=== PATIENT | female | born 1950 | race Caucasian/White ===

== ENCOUNTER → 2016-06-27 | Outpatient (CLI) | payer BC ==
[~2016-06-27] MED LIST: ADVIN10/60 INH; BNC/20125 PO; CALCTAB5 PO; CETITAB27 PO; CHOL100010 PO; CMD5 PO; MOME50SP5 NAE; MULT-506 PO; OMEG10007 PO; PERFLUTREN LIPID MICROSPHERE (DEFINITY) IV ONE; POTA10CA28 PO; SYN125 PO
--- NOTE | 2016-06-27 11:52 | EXERCISE STRESS ECHO ---
*NOTICE TO RECEIVING [employer] This information is strictly Confidential and protected under [place] law. [place] law prohibits you from making any further disclosure of this information unless further disclosure is expressly permitted by the written consent of the person to whom it pertains or is authorized by law. A general authorization for the release of medical or other information is not sufficient for this purpose. Hospital accepts no responsibility if the information is made available to any other person, INCLUDING THE PATIENT. Interpretation Summary * Name: ZHANE RAGLAND Study Date: 06/27/2016 08:40 AM BP: 111/62 mmHg * Patient Location: [facility] HR: 63 * : 1950 (M/d/yyyy) Gender: Female Height: 63 in * Age: 66 yrs Ethnicity: [place] Weight: 158 lb * Ordering Physician: Corey Ritchie * Referring Physician: Corey Ritchie * Performed By: Yamila Forrest RDCS * * Reason For Study: EXERTIONAL DYSPNEA * BSA: 1.7 m2 * History: EXERTIONAL CHEST PAIN * -- Conclusions -- * Left ventricular systolic function is normal. * Grade I diastolic dysfunction, (abnormal relaxation pattern). * Borderline stress test based on workload acheived (6 METS) without symptoms or evidence of inducible ischemia on echocardiography. * Hypertensive response to exercise. Procedure Details * A contrast injection of Definity was performed to improve assessment of LV function. * Contrast was injected into an intravenous site in the right arm. * One vial of Definity ultrasound contrast was diluted in normal saline to a total volume of 10 ml. A total of '4' ml of solution was administered during imaging. * Lot # [id number] of Definity utilized for procedure. * Expiration date JUL 18. * The attending nurse who injected the contrast agent was LEA SERRANO RN. Left Ventricle * The left ventricle is normal in size. * There is normal left ventricular wall thickness. * Ejection Fraction = 55-60%. * Left ventricular systolic function is normal. * Grade I diastolic dysfunction, (abnormal relaxation pattern). * The left ventricular wall motion is normal. Right Ventricle * The right ventricle is normal in size and function. Atria * The left atrial size is normal. * Right atrial size is normal. Mitral Valve * The mitral valve anatomy is normal. * Significant mitral regurgitation is absent. Tricuspid Valve * The tricuspid valve is not well visualized, but is grossly normal. * There is trace tricuspid regurgitation. Aortic Valve * The aortic valve is not well visualized. * No hemodynamically significant valvular aortic stenosis. * There is no significant aortic regurgitation. Great Vessels * The aortic root and proximal ascending aorta are normal sized. Pericardium * There is no pericardial effusion. Stress Parameters * Rest heart rate was '63' BPM. * Rest blood pressure was '111/62' * Maximum heart rate achieved was 130 bpm. * Maximum heart rate was 85 % of maximum age-predicted heart rate. * Maximum blood pressure was '199/69' * Total exercise time was '4:10' * Maximum exercise MET level achieved was '6.00' METS * Maximum treadmill speed was '2.50' miles per hour. * Maximum treadmill elevation was '12.00'% grade. * Exercise was terminated due to 'ACHIEVING TARGET HR' Left Ventricular Findings with Stress * Baseline EKG was normal with development of 1mm flat/upsloping ST depression at peak exertion. Normal baseline echocardiogram without inducible wall motion abnormalities. No chest pain reported Hypertensive BP response Draper treadmill score: -1 (moderate risk) MMode 2D Measurements and Calculations IVSd 1.2 cm IVSs 1.5 cm LVIDd 3.3 cm LVIDs 2.1 cm LVPWd 0.94 cm LVPWs 1.4 cm IVS/LVPW 1.3 FS 36.0 % EDV(Teich) 43.4 ml ESV(Teich) 14.3 ml EF(Teich) 67.0 % EDV(cubed) 35.2 ml ESV(cubed) 9.2 ml EF(cubed) 73.8 % % IVS thick 24.5 % % LVPW thick 48.8 % LV mass(C)d 106.4 grams LV mass(C)dI 60.8 grams/m\S\2 LV mass(C)s 99.1 grams LV mass(C)sI 56.7 grams/m\S\2 SV(Teich) 29.1 ml SI(Teich) 16.6 ml/m\S\2 SV(cubed) 26.0 ml SI(cubed) 14.9 ml/m\S\2 Ao root diam 3.2 cm Ao root area 7.9 cm\S\2 LA dimension 3.0 cm LA/Ao 0.93 LVAd ap4 27.0 cm\S\2 LVLd ap4 8.3 cm EDV(MOD-sp4) 76.3 ml EDV(sp4-el) 74.6 ml LVAs ap4 15.1 cm\S\2 LVLs ap4 6.6 cm ESV(MOD-sp4) 30.5 ml ESV(sp4-el) 29.5 ml EF(MOD-sp4) 60.0 % EF(sp4-el) 60.5 % LVAd ap2 24.5 cm\S\2 LVLd ap2 8.0 cm EDV(MOD-sp2) 61.8 ml EDV(sp2-el) 63.4 ml LVAs ap2 14.8 cm\S\2 LVLs ap2 6.6 cm ESV(MOD-sp2) 29.4 ml ESV(sp2-el) 28.0 ml EF(MOD-sp2) 52.4 % EF(sp2-el) 55.9 % LVLd %diff -3.45 % EDV(MOD-bp) 68.3 ml LVLs %diff 1.1 % ESV(MOD-bp) 30.1 ml EF(MOD-bp) 55.9 % SV(MOD-sp4) 45.7 ml SI(MOD-sp4) 26.1 ml/m\S\2 SV(MOD-sp2) 32.3 ml SI(MOD-sp2) 18.5 ml/m\S\2 SV(MOD-bp) 38.2 ml SI(MOD-bp) 21.8 ml/m\S\2 SV(sp4-el) 45.1 ml SI(sp4-el) 25.8 ml/m\S\2 SV(sp2-el) 35.4 ml SI(sp2-el) 20.2 ml/m\S\2 Doppler Measurements and Calculations MV E max ko 99.9 cm/sec MV A max ko 84.9 cm/sec MV E/A 1.2 MV dec time 0.27 sec Ao V2 max 133.9 cm/sec Ao max PG 7.2 mmHg Ao max PG (full) 2.6 mmHg LV V1 max PG 4.6 mmHg LV V1 max 106.7 cm/sec
== END | disposition home or self-care (01) ==
LOC: C.CPL 08:30
PROVIDERS: ATTEND Family Medicine
DX: R07.9 Chest pain, unspecified (principal)

== ENCOUNTER → 2016-12-15 | Outpatient (CLI) | payer BC ==
[~2016-12-15] MED LIST changes: +ASPI325T39 PO; +COEN100C7 PO; +HORS300C2 PO; +LEVO125T72 PO; +METO-217 PO; +OLME1TAB11 PO; -PERFLUTREN LIPID MICROSPHERE (DEFINITY) IV ONE
--- NOTE | 2016-12-15 10:44 | DIAGNOSTIC IMAGING REPORT ---
ABDOMINAL ULTRASOUND COMPLETE HISTORY: Generalized abdominal Pain, ventral HERNIA. COMPARISON: None. FINDINGS: Pancreas: The pancreas demonstrates a normal echotexture. Liver: The liver is echogenic consistent with fatty change. Gallbladder: The gallbladder is surgically absent. CBD: 7 mm. Kidneys: No hydronephrosis. The left kidney was partially obscured by overlying bowel gas. Spleen: Normal in size. Partially obscured by overlying bowel gas. Aorta: Normal in caliber. Of note, the aortic bifurcation was obscured by overlying bowel gas. IVC: Not well visualized due to overlying bowel gas. Partially reducible fat-containing umbilical hernia. IMPRESSION: 1. Fat-containing partially reducible umbilical hernia. 2. Cholecystectomy. 3. Hepatic steatosis. Electronically signed by: Deon Mejia M.D. 12/15/2016 10:43 AM Dictated Date/Time: 12/15/2016 10:39 AM
== END | disposition home or self-care (01) ==
LOC: C.ULTRBC 08:26
PROVIDERS: ATTEND Family Medicine
DX: K42.9 Umbilical hernia without obstruction or gangrene (principal); K76.0 Fatty (change of) liver, not elsewhere classified; Z90.49 Acquired absence of other specified parts of digestive tract

== ENCOUNTER → 2016-12-25 | Outpatient (CLI) | payer BC | END | disposition home or self-care (01) | LOC: C.PAPS 09:47 | PROVIDERS: ATTEND Obstetrics & Gynecology | DX: Z01.419 Encounter for gynecological examination (general) (routine) without abnormal findings (principal) ==

== ENCOUNTER → 2017-01-24 | Day surgery (SDC) | payer BC ==
[~2017-01-24] VITALS: Ht 160 cm; Wt 79.1 kg
[~2017-01-24] MED LIST changes: +ATROPINE SULFATE 0.1 MG/ML 5ML SYR IV PRN; -BNC/20125 PO; -CALCTAB5 PO; -CETITAB27 PO; -CHOL100010 PO; -CMD5 PO; +EpHEDrine SULFATE INJ 50 MG/ML AMP IV PRN; +LIDOCAINE HCL 2% 2 ML VIAL (20MG/ML) ONE; +MIDAZOLAM HCL 1 MG/ML 2ML VIAL ONE; -MOME50SP5 NAE; -POTA10CA28 PO; +PROPOFOL IV EMULSION 10 MG/ML 20 ML VIAL IV ONE; +SODIUM CHLORIDE 0.9% 500ML 500 ML IV ONE; -SYN125 PO
[2017-01-24 13:29] VITALS: Ht 160 cm; Wt 79.1 kg
--- NOTE | 2017-01-24 14:04 | Endo History and Physical ---
History & Physical Date of Service: Jan 24, 2017. Chief Complaint: RECTAL BLEED Referring Physician: DR. FRANCO History of Present Illness 66 yo CF who presents for colonoscopy secondary to Rectal bleeding. Past Surgical History Hx Cardiac Surgery: No Hx Internal Defibrillator: No Hx Pacemaker: No Hx Abdominal Surgery: Yes (2 C-SECTIONS, HYSTERECTOMY, DARIAN) Hx of Implantable Prosthesis: No Hx Post-Op Nausea and Vomiting: No Hx Cancer Surgery: No Hx Thoracic Surgery: No Hx Orthopedic: No Hx Urinary Tract Surgery: No Family History IBD Social History Smoking Status: Never Smoker Hx Substance Use: No Hx Alcohol Use: Yes (OCCASIONALLY) Allergies Coded Allergies: Azithromycin (Verified Allergy, Severe, ANAPHILAXIS, 01/24/17) Moxifloxacin (Verified Allergy, Severe, ANAPHILAXIS, 01/24/17) Sulfa Drugs (Verified Allergy, Intermediate, HIVES, SWELLING, 01/24/17) Doxycycline (Verified Allergy, Unknown, HIVES, 01/24/17) Penicillins (Verified Allergy, Unknown, HIVES, SWELLING, 01/24/17) Current Medications Reported Home Medications Medications Dose Route/Sig Max Daily Dose Days Date Category Synthroid (Levothyroxine Sodium) 125 Mcg Tab 125 Mcg PO QAM 01/10/17 Reported Multivitamin (Multivitamins) Tab 1 Tab PO DAILY 01/10/17 Reported Toprol Xl (Metoprolol Succinate) 50 Mg Tabcr 50 Mg PO QPM 01/10/17 Reported [place]-3 (Fish Oil) 1 Ea Cap 1 Cap PO DAILY 01/10/17 Reported Coq10 (Coenzyme Q10 (Ubidecarenone)) 100 Mg Cap 1 Cap PO DAILY 01/10/17 Reported Benicar (Olmesartan Medoxomil) 20 Mg Tab 20 Mg PO QAM 01/10/17 Reported Aspirin Ec (Aspirin) 325 Mg Tab 325 Mg PO HS 01/10/17 Reported Advair Diskus 100/50 60 Dose (Fluticasone Prop/Salmeterol) 1 Ea Aerp 1 Puff INH BID PRN 01/10/17 Reported Venastat ([place] (Aesculus Hippo) 300 Mg Cap 1 Cap PO QAM 01/10/17 Reported Vital Signs Weight (Kilograms): 79.09 Height (Feet): 5 Height (Inches): 3 Date Time Temp Pulse Resp B/P (MAP) Pulse Ox O2 Delivery O2 Flow Rate FiO2 01/24/17 13:55 37.0 67 20 167/69 (101) 96 Room Air Physical Exam General Appearance: WD/WN, no apparent distress Respiratory/Chest: Auscultation: breath sounds normal Cardiovascular: Heart Auscultation: RRR Abdomen: Bowel Sounds: normal Inspection & Palpation: soft, non-distended, no tenderness, guarding & rebound Assessment and Plan Assessment: 66 yo CF who presents for colonoscopy secondary to Rectal bleeding. Plan: Proceed with colonoscopy.
--- NOTE | 2017-01-24 14:42 | Anesthesiology Progress Note ---
Anesthesia Post Op Note Date & Time Jan 24, 2017 at 14:42 Vital Signs Pain Intensity: 0 Vital Signs Past 12 Hours Date Time Temp Pulse Resp B/P (MAP) Pulse Ox O2 Delivery O2 Flow Rate FiO2 01/24/17 13:55 37.0 67 20 167/69 (101) 96 Room Air Notes Mental Status: alert / awake / arousable, participated in evaluation Pt Amnestic to Procedure: Yes Nausea / Vomiting: adequately controlled Pain: adequately controlled Airway Patency, RR, SpO2: stable & adequate BP & HR: stable & adequate Hydration State: stable & adequate Anesthetic Complications: no major complications apparent
[2017-01-24 15:08] VITALS: BP 163/87; PULSE 71; O2SAT 95
--- NOTE | 2017-01-24 15:30 | Discharge Instructions ---
Endoscopy Patient Instructions Date / Procedure(s) Performed Jan 24, 2017. Colonoscopy Allergy Information Coded Allergies: Azithromycin (Verified Allergy, Severe, ANAPHILAXIS, 01/24/17) Moxifloxacin (Verified Allergy, Severe, ANAPHILAXIS, 01/24/17) Doxycycline (Verified Allergy, Unknown, HIVES, 01/24/17) Penicillins (Verified Allergy, Unknown, HIVES, SWELLING, 01/24/17) Sulfa Antibiotics (Verified Allergy, Unknown, HIVES, SWELLING, 01/24/17) Discharge Date / Findings Jan 24, 2017. Colon polyps Diverticulosis Internal hemorrhoids Medication Instructions OK to resume all medications today as prescribed Reported Home Medications Medications Dose Route/Sig Max Daily Dose Days Date Category Synthroid (Levothyroxine Sodium) 125 Mcg Tab 125 Mcg PO QAM 01/10/17 Reported Multivitamin (Multivitamins) Tab 1 Tab PO DAILY 01/10/17 Reported Toprol Xl (Metoprolol Succinate) 50 Mg Tabcr 50 Mg PO QPM 01/10/17 Reported [place]-3 (Fish Oil) 1 Ea Cap 1 Cap PO DAILY 01/10/17 Reported Coq10 (Coenzyme Q10 (Ubidecarenone)) 100 Mg Cap 1 Cap PO DAILY 01/10/17 Reported Benicar (Olmesartan Medoxomil) 20 Mg Tab 20 Mg PO QAM 01/10/17 Reported Aspirin Ec (Aspirin) 325 Mg Tab 325 Mg PO HS 01/10/17 Reported Advair Diskus 100/50 60 Dose (Fluticasone Prop/Salmeterol) 1 Ea Aerp 1 Puff INH BID PRN 01/10/17 Reported Venastat ([place] (Aesculus Hippo) 300 Mg Cap 1 Cap PO QAM 01/10/17 Reported Provider Instructions Activity Restrictions - No exercising or heavy lifting for 24 hours. - Do not drink alcohol the day of the procedure. - Do not drive a car or operate machinery until the day after the procedure. - Do not make any important decisions or sign important papers in 24 hours after the procedure. Following Day: - Return to full activity which may include returning to work/school. Diet Start your diet with liquids and light foods (jello, soup, juice, toast). Then eat your usual diet if not nauseated. Treatment For Common After Affects For mild abdominal pain, bloating, or excessive gas: - Rest - Eat lightly - Lie on right side Follow-Up Information Follow-up with DR. FRANCO as scheduled Anesthesia Information What You Should Know You have had a procedure that required some medicine to reduce anxiety and discomfort. This treatment is called moderate sedation. After receiving the treatment, you may be sleepy, but you will be able to breathe on your own. The effects of the treatment may last for several hours. Follow these instructions along with Activity/Diet recommendations noted above: * Do NOT do anything where dizziness or clumsiness would be dangerous. * Rest quietly at home today, then you can be up and about tomorrow. * Have a responsible person stay with you the rest of today. * You may have had an I.V. today. If so, you may take the dressing off later today. Recommendations Call your doctor if: * Trouble breathing * Continuous vomiting for more than 24 hours * Temperature above 101 degrees * Severe abdominal pain or bloating * Pain not relieved by pain medicine ordered * There is increased drainage or redness from any incision * A large amount of rectal bleeding greater than 2-3 tablespoons. (If you had a polyp/s removed or have hemorrhoids, a small amount of blood - from the rectum is to be expected.) * You have any unanswered questions or concerns. IN THE EVENT OF A SERIOUS EMERGENCY, GO TO THE NEAREST EMERGENCY ROOM Your discharge instructions were prepared by provider Gus Knox. Patient Instructions Signature Page Cat Persaud Patient (or Guardian) Signature/Date: I have read and understand the instructions given to me by my caregivers. Caregiver/RN/Doctor Signature/Date: The above-named patient and/or guardian has received patient instructions on this date. + Original Patient Signature Page (only) stays with chart. Please make copy for patient.
--- NOTE | 2017-01-24 20:25 | GI REPORT ---
Procedure Date: 01/24/2017 2:08 PM Procedure: Colonoscopy Indications: Screening for colorectal malignant neoplasm Medicines: Monitored Anesthesia Care Complications: No immediate complications. Estimated Blood Loss: Estimated blood loss: none. Procedure: Pre-Anesthesia Assessment: - Prior to the procedure, a History and Physical was performed, and patient medications and allergies were reviewed. The patient's tolerance of previous anesthesia was also reviewed. The risks and benefits of the procedure and the sedation options and risks were discussed with the patient. All questions were answered, and informed consent was obtained. Prior Anticoagulants: The patient has taken aspirin, last dose was 2 days prior to procedure. ASA Grade Assessment: II - A patient with mild systemic disease. After reviewing the risks and benefits, the patient was deemed in satisfactory condition to undergo the procedure. After I obtained informed consent, the scope was passed under direct vision. Throughout the procedure, the patient's blood pressure, pulse, and oxygen saturations were monitored continuously. The Scope was introduced through the anus and advanced to the terminal ileum. The colonoscopy was performed without difficulty. The patient tolerated the procedure well. The quality of the bowel preparation was good. The terminal ileum, ileocecal valve, appendiceal orifice, and rectum were photographed. Findings: A 5 mm polyp was found in the ascending colon. The polyp was sessile. The polyp was removed with a hot snare. Resection and retrieval were complete. A 3 mm polyp was found in the transverse colon. The polyp was sessile. The polyp was removed with a cold snare. Resection and retrieval were complete. Multiple small-mouthed diverticula were found in the sigmoid colon. Non-bleeding internal hemorrhoids were found during retroflexion. The hemorrhoids were small. Impression: - One 5 mm polyp in the ascending colon, removed with a hot snare. Resected and retrieved. - One 3 mm polyp in the transverse colon, removed with a cold snare. Resected and retrieved. - Diverticulosis in the sigmoid colon. - Non-bleeding internal hemorrhoids. Recommendation: - Resume previous diet. - Continue present medications. - Repeat colonoscopy for surveillance based on pathology results. - Return to primary care physician as previously scheduled. Gus Knox DO 01/24/2017 2:35:10 PM This report has been signed electronically. Note Initiated On: 01/24/2017 2:08 PM I attest to the content of the Intraoperative Record and orders documented therein, exceptions below
== END | disposition home or self-care (01) ==
LOC: C.GI 13:14
PROVIDERS: ATTEND Internal Medicine
DX: K62.5 Hemorrhage of anus and rectum (principal); D12.2 Benign neoplasm of ascending colon; D12.3 Benign neoplasm of transverse colon; K57.30 Diverticulosis of large intestine without perforation or abscess without bleeding; K64.8 Other hemorrhoids; I10 Essential (primary) hypertension; E03.9 Hypothyroidism, unspecified; Z68.30 Body mass index [BMI] 30.0-30.9, adult; E66.9 Obesity, unspecified; Z86.711 Personal history of pulmonary embolism; Z88.1 Allergy status to other antibiotic agents; Z88.0 Allergy status to penicillin; Z88.2 Allergy status to sulfonamides; Z90.49 Acquired absence of other specified parts of digestive tract; Z90.710 Acquired absence of both cervix and uterus

== ENCOUNTER → 2017-02-19 | Outpatient (CLI) | payer BC ==
[~2017-02-19] MED LIST changes: -ATROPINE SULFATE 0.1 MG/ML 5ML SYR IV PRN; -EpHEDrine SULFATE INJ 50 MG/ML AMP IV PRN; -LIDOCAINE HCL 2% 2 ML VIAL (20MG/ML) ONE; -MIDAZOLAM HCL 1 MG/ML 2ML VIAL ONE; -PROPOFOL IV EMULSION 10 MG/ML 20 ML VIAL IV ONE; -SODIUM CHLORIDE 0.9% 500ML 500 ML IV ONE
[2017-02-19 09:37] LABS: BASO % 0.9 %; BASO ABS # 0.07 K/uL (0-0.2); COMPLETE YES; EOS % 7.8 %; HEMATOCRIT 42.2 % (37-47); IG% 0.1 %; LYMPH % 31.8 %; LYMPH ABS # 2.46 K/uL (1.2-3.4); MEAN CELL VOLUME 85.8 fL (80-100); MEAN CORPUSCULAR HEMOGLOBIN 28.9 pg (25-34); MEAN CORPUSCULAR HGB CONC 33.6 g/dl (32-36); MEAN PLATELET VOLUME 9.1 fL (7.4-10.4); MONO % 8.1 %; NEUT % 51.3 %; PLATELET COUNT 244 K/uL (130-400); RED BLOOD COUNT 4.92 M/uL (4.2-5.4); WHITE BLOOD COUNT 7.74 K/uL (4.8-10.8)
[2017-02-19 09:57] LABS: ESTIMATED AVERAGE GLUCOSE 128 mg/dl; HA1C FLAG Normal (Normal)
[2017-02-19 10:10] LABS: ALT/SGPT 23 U/L (12-78); BLOOD UREA NITROGEN 17 mg/dl (7-18); BUN/CREATININE RATIO 23.6 (10-20); CARBON DIOXIDE 26 mmol/L (21-32); CHLORIDE 106 mmol/L (98-107); CHOLESTEROL 203 mg/dl (0-200); CREATININE 0.73 mg/dl (0.60-1.20); GLUCOSE 88 mg/dl (70-99); POTASSIUM 3.8 mmol/L (3.5-5.1); SODIUM 141 mmol/L (136-145); TRIGLYCERIDES 162 mg/dl (0-150); VERY LOW DENSITY LIPOPROT CALC 32 mg/dl
[2017-02-19 10:21] LABS: ALKALINE PHOSPHATASE 87 U/L (45-117); AST/SGOT 17 U/L (15-37); HDL CHOLESTEROL 51 mg/dl; LDL CHOLESTEROL CALCULATED 120 mg/dl
== END | disposition home or self-care (01) ==
LOC: C.LAB1850 09:02
PROVIDERS: ATTEND Family Medicine
DX: E78.5 Hyperlipidemia, unspecified (principal)

== ENCOUNTER → 2017-02-20 | Outpatient (CLI) | payer BC ==
[~2017-02-20] MED LIST changes: +GADOXETATE DISODIUM (NON-WT BASED PROCEDURE) IV PRN
--- NOTE | 2017-02-20 08:18 | DIAGNOSTIC IMAGING REPORT ---
MRI OF THE ABDOMEN COMBO CLINICAL HISTORY: Generalized abdominal pain. Reported family history of biliary cancer. COMPARISON STUDY: Abdominal CT dated 11/14/2009. Abdominal ultrasound dated 12/15/2016. TECHNIQUE: MRI of the abdomen is performed transverse T1 and T2-weighted sequences in the axial and coronal planes. Contrast enhanced sequences were acquired following the IV administration of 10 cc view of Eovist. Subtraction and diffusion imaging was utilized. MRCP images were acquired. 3-D reformats are created and assessed. FINDINGS: Lower chest: No pleural effusion is identified. The heart is normal in size. Liver: The liver is enlarged, measuring 20.5 cm in length. There is diffuse drop in signal on the opposed phase imaging consistent with hepatic steatosis. Fatty sparing is seen adjacent to gallbladder fossa. The surface contour is normal. Mild central intrahepatic biliary ductal dilatation is seen. The hepatic veins and portal veins are patent. No hepatic mass lesion is identified. Gallbladder: The gallbladder is surgically absent. The common bile duct measures up to 1.0 cm in caliber. No filling defects are seen to indicate choledocholithiasis. The pancreatic duct is normal. Spleen: Normal in size and signal intensity. Pancreas: A 6 mm ovoid T2 hyperintense structure adjacent the pancreatic duct seen on axial image #15 and coronal MRCP image #52 likely represents a tiny IPMN. The pancreas is otherwise normal in appearance. Adrenal glands: Unremarkable. Kidneys: The kidneys are normal in size and without hydronephrosis. The kidneys enhance and excrete symmetrically. Abdominal aorta: Normal in course and caliber. Bowel: Visualized portions of the small bowel and colon show no evidence of obstruction. Peritoneum: There is no abdominal ascites. Lymphadenopathy: None. Skeletal structures: Visualized skeletal structures times are normal marrow signal intensity. IMPRESSION: 1. Hepatomegaly and hepatic steatosis. 2. Status post cholecystectomy. 3. No enhancing mass lesion is identified. 4. Suspect a 6 mm pancreatic IPMN. 5. Mild intra and extrahepatic biliary ductal dilatation is likely related to previous cholecystectomy. There is no evidence of choledocholithiasis. Electronically signed by: Adrian Abraham M.D. 02/20/2017 8:16 AM Dictated Date/Time: 02/20/2017 7:59 AM
== END | disposition home or self-care (01) ==
LOC: C.MRI 06:33
PROVIDERS: ATTEND Family Medicine
DX: R10.9 Unspecified abdominal pain (principal); Z80.0 Family history of malignant neoplasm of digestive organs; R16.0 Hepatomegaly, not elsewhere classified; K76.0 Fatty (change of) liver, not elsewhere classified

== ENCOUNTER → 2017-03-23 | Outpatient (CLI) | payer BC ==
[~2017-03-23] MED LIST changes: -GADOXETATE DISODIUM (NON-WT BASED PROCEDURE) IV PRN
--- NOTE | 2017-03-29 12:17 | CODING QUERY NO DIAGNOSIS ---
TREATMENT RENDERED WITHOUT A DIAGNOSIS To promote full compliance with coding requirements relating to patient care, physician participation is requested in all cases of asbestos abatement technician uncertainty. Please assist us with providing a diagnosis/symptom for the test(s) below: A diagnosis/symptom was not documented on your Order. A valid diagnosis/symptom is required to bill all insurances. Please remember that we are unable to code a diagnosis of rule out, probable, possible, questionable, or suspected. Tests that require a diagnosis: * URINE CULTURE CLEAN CATCH DIAGNOSIS: Provider Signature: Date: Thank you Vianney [place] [employer] Once completed, please kindly fax back to [phone] For questions please call [phone]
== END | disposition home or self-care (01) ==
LOC: C.LABSPEC 16:33
PROVIDERS: ATTEND Family Medicine
DX: N39.0 Urinary tract infection, site not specified (principal)

== ENCOUNTER → 2017-04-19 | Outpatient (CLI) | payer BC | END | disposition home or self-care (01) | LOC: C.MAMM 09:18 | DX: Z12.31 Encounter for screening mammogram for malignant neoplasm of breast (principal) ==

== ENCOUNTER → 2017-04-23 | Outpatient (CLI) | payer BC | END | disposition home or self-care (01) | LOC: C.LAB 08:49 | PROVIDERS: ATTEND Nutritionist | DX: R53.83 Other fatigue (principal); E63.9 Nutritional deficiency, unspecified ==

== ENCOUNTER 2017-05-17 05:37 | Day surgery (SDC) | payer BC ==
[2017-05-04 08:37] VITALS: BMI 34.0
--- NOTE | 2017-05-04 09:10 | PAT Medication Instructions ---
Service Date May 04, 2017. Current Home Medication List Aspirin (Aspirin Ec), 325 MG PO HS Coenzyme Q10 (Ubidecarenone) (Coq10), 1 CAP PO DAILY Fish Oil ([place]-3), 1 CAP PO DAILY Fluticasone Prop/Salmeterol (Advair Diskus 100/50 60 Dose), 1 PUFF INH BID PRN for Shortness of Breath [place] (Aesculus Hippo (Venastat), 2 CAP PO DAILY Levothyroxine Sodium (Synthroid), 125 MCG PO QAM Metoprolol Succinate (Toprol Xl), 50 MG PO QPM Multivitamin (Multivitamin), 1 TAB PO DAILY Olmesartan Medoxomil (Benicar), 20 MG PO QAM Omeprazole (Prilosec), 20 MG PO QPM [Aloe Vera], 1 TAB PO QPM Medication Instructions For Your Scheduled Surgery - Hold the following medications starting 05/04/17: Coenzyme Q10 (Ubidecarenone) (Coq10), 1 CAP PO DAILY Fish Oil ([place]-3), 1 CAP PO DAILY [place] (Aesculus Hipp[place] (Venastat), 2 CAP PO DAILY - Check with surgeon for instructions: Aspirin (Aspirin Ec), 325 MG PO HS - Hold the following medications the morning of surgery: Multivitamin (Multivitamin), 1 TAB PO DAILY Olmesartan Medoxomil (Benicar), 20 MG PO QAM - Take the following medications the morning of surgery with a sip of water: Fluticasone Prop/Salmeterol (Advair Diskus 100/50 60 Dose), 1 PUFF INH BID PRN for Shortness of Breath (if needed) Levothyroxine Sodium (Synthroid), 125 MCG PO QAM - Take the following medications as scheduled the night before surgery: Fluticasone Prop/Salmeterol (Advair Diskus 100/50 60 Dose), 1 PUFF INH BID PRN for Shortness of Breath (if needed) [Aloe Vera], 1 TAB PO QPM Omeprazole (Prilosec), 20 MG PO QPM Metoprolol Succinate (Toprol Xl), 50 MG PO QPM If you have any questions please call us at [phone] or [phone] or [phone]
--- NOTE | 2017-05-04 09:57 | DIAGNOSTIC IMAGING REPORT ---
CHEST 2 VIEWS ROUTINE CLINICAL HISTORY: Preoperative chest COMPARISON STUDY: 03/23/2010 FINDINGS: The cardiac and mediastinal contours remain stable. There is no failure. There is no focal pulmonary consolidation. There are no pleural effusions. There is minor left basilar atelectasis/scarring[ IMPRESSION: No active disease in the chest. Electronically signed by: Kang Cadet M.D. 05/04/2017 9:56 AM Dictated Date/Time: 05/04/2017 9:56 AM
[2017-05-04 10:14] LABS: BASO ABS # 0.08 K/uL (0-0.2); EOS % 7.1 %; EOS ABS # 0.58 K/uL (0-0.5); HEMOGLOBIN 13.7 g/dL (12.0-16.0); IG# 0.02 K/uL (0.00-0.02); LYMPH % 34.4 %; LYMPH ABS # 2.83 K/uL (1.2-3.4); MEAN CELL VOLUME 87.1 fL (80-100); MEAN CORPUSCULAR HEMOGLOBIN 28.4 pg (25-34); MEAN CORPUSCULAR HGB CONC 32.6 g/dl (32-36); MEAN PLATELET VOLUME 9.2 fL (7.4-10.4); MONO % 8.5 %; NEUT % 48.8 %; NEUT ABS # 4.01 K/uL (1.4-6.5); PLATELET COUNT 256 K/uL (130-400); RED CELL DISTRIBUTION WIDTH SD 44.8 fL (36.4-46.3); WHITE BLOOD COUNT 8.22 K/uL (4.8-10.8)
[2017-05-04 11:41] LABS: CALCIUM 8.9 mg/dl (8.5-10.1); CREATININE 0.8 mg/dl (0.60-1.20); POTASSIUM 4.2 mmol/L (3.5-5.1)
[~2017-05-17] VITALS: Ht 160 cm; Wt 88.3 kg
[~2017-05-17 05:37] MED LIST changes: +ALOE VERA PO; +BNC/20 PO; -OLME1TAB11 PO; +PRLSR20 PO
[2017-05-17 05:47] VITALS: BP 152/65; PULSE 71; TEMP 36.8; O2SAT 9; Ht 160 cm; Wt 88.3 kg
[2017-05-17] MEDS ORDERED: CIPROFLOXACIN 400MG / 200ML D5W IV ONE (06:00)
[2017-05-17] MEDS ORDERED: LACTATED RINGER'S 1000ML 1,000 ML IV SCH ×2 (06:00→08:27)
--- NOTE | 2017-05-17 06:29 | History & Physical Bridge Note ---
H&P Re-Evaluation Bridge Note: I have examined the patient, reviewed the History & Physical and in the interval since the performance of the History & Physical I have noted the following changes of clinical significance: No changes noted at bedside multiple allergies can take Cipro, supraumbilical bulge marked
[2017-05-17] MEDS ORDERED: ONDANSETRON INJ 2 MG/ML 2 ML VIAL ONE (06:38)
[2017-05-17] MEDS ORDERED: MIDAZOLAM HCL 1 MG/ML 2ML VIAL ONE (06:38)
[2017-05-17] MEDS ORDERED: PROPOFOL IV EMULSION 10 MG/ML 20 ML VIAL IV ONE (06:38)
[2017-05-17] MEDS ORDERED: LIDOCAINE HCL 2% 2 ML VIAL (20MG/ML) ONE (06:38)
[2017-05-17] MEDS ORDERED: FENTANYL CITRATE INJ 50 MCG/1 ML 2 ML VIAL ONE ×3 (06:39→08:15)
[2017-05-17] MEDS ORDERED: BUPIVACAINE 0.5 % 5 MG/1 ML MPF 30ML VIAL ONE (06:43)
[2017-05-17] MEDS ORDERED: BACITRACIN 50000 UNIT VIAL ONE (06:43)
[2017-05-17] MEDS ORDERED: CIPROFLOXACIN 400MG / 200ML D5W ONE (06:47)
[2017-05-17] MEDS ORDERED: DEXAMETHASONE SOD INJ 4 MG/ML VIAL ONE (07:40)
[2017-05-17] MEDS ORDERED: SUCCINYLCHOLINE 100MG/5ML SYR IV ONE (07:41)
[2017-05-17] MEDS ORDERED: NEOSTIGMINE METHYLSULFATE 5 MG/5 ML SYR ONE (07:41)
[2017-05-17] MEDS ORDERED: CISATRACURIUM BESYLATE IV SOLN 2 MG/ML 10 ML VIAL ONE (07:41)
[2017-05-17] MEDS ORDERED: GLYCOPYRROLATE INJ 0.2 MG/ML VIAL ONE (07:41)
--- NOTE | 2017-05-17 08:06 | [facility] Post Operative Brief Note ---
Immediate Operative Summary Operative Date May 17, 2017. Pre-Operative Diagnosis Incarcerated incisional hernia Post-Operative Diagnosis Same Procedure(s) Performed Laparoscopic Incisional Incarcerated Hernia Repair with Mesh 12.[address] Saenz Aoc Director Combat Operations Officer Surgeon(s) Dilan Villegas PA-C Estimated Blood Loss 7.5ml Findings Consistent with Post-Op Diagnosis Specimens None Anesthesia Type General
[2017-05-17] MEDS ORDERED: OXYCODONE/ACETAMINOPHEN 5-325 TAB PO PRN (08:30)
[2017-05-17] MEDS ORDERED: PROMETHAZINE HCL INJ 12.5 MG in SODIUM CHLORIDE 0.9% 50ML 50 ML IV PRN (08:30)
[2017-05-17] MEDS ORDERED: ONDANSETRON INJ 2 MG/ML 2 ML VIAL IV PRN ×2 (08:30)
[2017-05-17] MEDS ORDERED: MoRPHine SULFATE 2 MG/ML CARP IV PRN (08:30)
[2017-05-17] MEDS ORDERED: HYDROmorphone INJ 1 MG/ML SYR IV PRN (08:30)
[2017-05-17] MEDS ORDERED: LABETALOL HCL IV 5 MG/ML 20ML IV PRN (08:30)
[2017-05-17] MEDS ORDERED: NALOXONE HCL 0.4 MG/1 ML VIAL/CARP IV PRN (08:30)
[2017-05-17] MEDS ORDERED: FLUMAZENIL 0.1 MG/1 ML 10 ML VIAL IV PRN (08:30)
[2017-05-17] MEDS ORDERED: OXYC-57 PO (08:30)
[2017-05-17] MEDS ORDERED: EpHEDrine SULFATE INJ 50 MG/ML AMP IV PRN (08:30)
[2017-05-17] MEDS ORDERED: ATROPINE SULFATE 0.1 MG/ML 5ML SYR IV PRN (08:30)
--- NOTE | 2017-05-17 08:33 | Discharge Instructions ---
Discharge Instructions Date of Service May 17, 2017. Visit Reason for Visit: Incisional Hernia Discharge Discharge Diagnosis / Problem: laparoscopic hernia repair Discharge Goals Goal(s): Decrease discomfort Activity Recommendations Activity Limitations: as noted below Lifting Limitations: no more than 10 pounds Shower/Bathe: tomorrow wear abdominal binder until bedtime today, can then use during the day for comfort Anesthesia . Post Anesthesia Instructions: If you have had General Anesthesia or IV Sedation: * Do not drive today. * Resume driving when surgeon permits. * Do not make important decisions or sign legal documents today. * Call surgeon for: 1. Temperature elevations greater than 101 degrees F. 2. Uncontrollable pain. 3. Excessive bleeding. 4. Persistent nausea and vomiting. 5. Medication intolerance (nausea, vomiting or rash). * For nausea and vomiting use only clear liquids such as: tea, soda, bouillon until nausea subsides, then gradually increase diet as tolerated. * If you have any concerns or questions, call your surgeon's office. If physician is unavailable and it is an emergency, call 911 or go to the nearest emergency room. . Instructions / Follow-Up Instructions / Follow-Up Dr. Saenz in 1 week, call [phone] if you do not already have an appt or have any questions Diet Recommendations Recommended Home Diet: no limitations Procedures Procedures Performed: Laparoscopic Incisional Incarcerated Hernia Repair with Mesh 12.5 cm surgimesh Pending Studies Studies pending at discharge: no Medical Emergencies . Who to Call and When: Medical Emergencies: If at any time you feel your situation is an emergency, please call 911 immediately. . Non-Emergent Contact Non-Emergency issues call your: Surgeon Call Non-Emergent contact if: you have a fever, temperature is above 101.5, your pain is not controlled, wound has increased redness, wound has increased pain, you have any medication questions . . "Provider Documentation" section prepared by Dilan Villegas. . [place] Drug Monitoring Program Search Results: no issues identified
--- NOTE | 2017-05-17 08:46 | OPERATIVE REPORT ---
DATE OF OPERATION: 05/17/2017 SURGEON: Dr. Saenz. BARGAIN TABLE CLERK: Dilan Kamara PA-C. PREOPERATIVE DIAGNOSIS: Incarcerated incisional hernia. POSTOPERATIVE DIAGNOSIS: Same. PROCEDURE: Laparoscopic repair of incarcerated incisional hernia with 12.5 cm Surgimesh. SUMMARY: The patient was brought into the operating room theater. The abdomen was scrubbed with Betadine scrubbing solution and properly draped. Systemic antibiotics were given. The patient had a bulge in the supraumbilical area, likely from the trocar that opened entry into the abdomen for laparoscopic cholecystectomy. She also had a lower midline incision. At this point, I felt that there was a point of entry right in the middle of the umbilical area, therefore, we used towel clips to elevate the abdominal wall. I made a small incision there, approximately enough to get a 5 mm trocar. Once we entered that subcutaneous tissue, we actually were in part of the hernial sac, we could see some fatty tissue coming through. We then dissected out easily bluntly until we entered the peritoneal cavity, consistent with a lot of fatty tissue, most likely omentum coming through. We placed a 5 mm trocar without the sharp edge into the abdomen. Controlled the pneumoperitoneum with a towel clip and CO2 was insufflated at a low volume. Once we had sufficiently entered the abdominal cavity with the camera, we then turned our attention to the right upper quadrant where we could see a previous trocar entry site from her gallbladder surgery. We then used the same site through the skin incision and entered a 5 mm trocar with preemptive local analgesia of 1% Xylocaine. The camera was placed in that area and we could visualize the umbilical opening, which the trocar would have initially gone, was adherent to the omental tissue stuck into the abdominal wall. There was no bowel. At this point, I elected to place another 5 mm right lower quadrant port and used these 2 port sites to manipulate and reduce pretty much significant amount of incarcerated omentum into the hernial sac. We then placed a 5 mm left upper quadrant port to use that as an entry site, also to use some traction. Once we reduced the omentum and completed the abdomen which some of it was done with cautery that was strictly adherent, then we freed up the muscular fascial planes around the defect. The defect itself measured approximately 4 x 5 cm but we had enough mobilization and good tissue around the area that I elected to place a 12.5 cm Surgimesh. We placed this through the original 5 mm trocar site in the umbilical area, controlled the pneumoperitoneum with a towel clip. We then elevated the stay suture of nylon right in the middle of the defect. Once we elevated the Surgimesh, we then used ProTackers circumferentially. We also used stay sutures of 2-0 nylon and polar sutures for grabbing the abdominal wall fascia and the mesh to hold it in place further. The repair appeared to be solid. The tacking suture of the nylon that was elevated, we took that out. Hemostasis was satisfactory. There was minimal oozing along where we had resected the omentum but there was no other significant bleeding and most of it had stopped. Individual trocars were then removed. Point of entry inspected once the left upper quadrant trocar was removed. We placed a 2-0 Dexon suture for subcutaneous tissue in the umbilical area, then the other ones were closed with 4-0 Monocryl. Steri-Strips applied. The procedure was tolerated well by the patient. Estimated blood loss approximately 7.5 mL. The patient was taken to recovery room in good condition. I attest to the content of the Intraoperative Record and any orders documented therein. Any exception s are noted below.
--- NOTE | 2017-05-17 08:50 | Anesthesiology Progress Note ---
Anesthesia Post Op Note Date & Time May 17, 2017 at 08:49 Vital Signs Pain Intensity: 0 Vital Signs Past 12 Hours Date Time Temp Pulse Resp B/P (MAP) Pulse Ox O2 Delivery O2 Flow Rate FiO2 05/17/17 08:40 70 16 134/61 98 Oxymask 10 05/17/17 08:30 68 16 143/66 95 Oxymask 10 05/17/17 08:24 36.5 87 16 142/65 98 Oxymask 10 05/17/17 05:47 36.8 71 20 152/65 (94) 9 Room Air Notes Mental Status: alert / awake / arousable, participated in evaluation Pt Amnestic to Procedure: Yes Nausea / Vomiting: adequately controlled Pain: adequately controlled Airway Patency, RR, SpO2: stable & adequate BP & HR: stable & adequate Hydration State: stable & adequate Anesthetic Complications: no major complications apparent
[2017-05-17 09:05] VITALS: BP 123/61; PULSE 61; TEMP 36.5; O2SAT 98
[2017-05-17 09:35] VITALS: BP 145/65; PULSE 57; O2SAT 95
[2017-05-17 10:05] VITALS: BP 145/65; PULSE 57; TEMP 36.5; O2SAT 95
[2017-05-17 10:09] VITALS: BP 124/60; PULSE 60; TEMP 36.5; O2SAT 95
[2017-05-17 10:50] VITALS: BP 132/63; PULSE 60; TEMP 36.5; O2SAT 95
== END 2017-05-17 11:10 | disposition home or self-care (01) ==
LOC: C.ACU 05:37
PROVIDERS: ATTEND Surgery
DX: K43.0 Incisional hernia with obstruction, without gangrene (principal); K21.9 Gastro-esophageal reflux disease without esophagitis; I10 Essential (primary) hypertension; I48.0 Paroxysmal atrial fibrillation; K57.90 Diverticulosis of intestine, part unspecified, without perforation or abscess without bleeding; E78.5 Hyperlipidemia, unspecified; E03.9 Hypothyroidism, unspecified; K64.8 Other hemorrhoids; J45.909 Unspecified asthma, uncomplicated; K42.9 Umbilical hernia without obstruction or gangrene; E55.9 Vitamin D deficiency, unspecified; Z88.1 Allergy status to other antibiotic agents; Z88.2 Allergy status to sulfonamides; Z86.010 Personal history of colon polyps; Z86.718 Personal history of other venous thrombosis and embolism; Z87.01 Personal history of pneumonia (recurrent); Z86.711 Personal history of pulmonary embolism; Z90.49 Acquired absence of other specified parts of digestive tract; Z79.82 Long term (current) use of aspirin; Z82.49 Family history of ischemic heart disease and other diseases of the circulatory system

== ENCOUNTER 2017-07-31 20:17 | Emergency (ER) | payer BC ==
[~2017-07-31] VITALS: Ht 160 cm; Wt 82.0 kg
[~2017-07-31 20:17] MED LIST changes: +OXYC-57 PO
[2017-07-31 20:35] VITALS: Ht 160 cm; Wt 82.0 kg
--- NOTE | 2017-07-31 21:23 | EMERGENCY ROOM VISIT NOTE ---
History Report prepared by Carmela: Louie Heaton Under the Supervision of: Simeon EdwardsO. First contact with patient: 21:09 Chief Complaint: ABDOMINAL PAIN Stated Complaint: ABOMINAL DISTRESS, FEVER, NAUSEA, DIARRHEA History of Present Illness The patient is a 67 year old female who presents to the Emergency Room with complaints of worsening sharp abdominal pain and diarrhea starting earlier today. The patient notes that yesterday she overall did not feel very well, and today she got worse. She additionally notes that she has had chills and fever up to 101.8. The patient reports that she was nauseous today, though she did not vomit, and she states that she has had 5 episodes of diarrhea today. The patient notes that she feels like her abdomen is bloated and distended. The patient has a history of a hernia repair in May, and she states that she has had recent gall bladder surgery. She notes that last week she has a tick on her abdomen, though she does not think that it even got into her skin, though there is a red andrzej on her abdomen. She denies any chest pain, shortness of breath, black stools, bloody stools, any recent sick contacts, urine discoloration, any swelling, recent travel, and any recent changes in medications. The patient is additionally complaining of a headache in the back of her head and some urinary burning. She notes that she has a kidney infection in March, and she has a history of thyroid problems. Source of History: patient Onset: this morning Position: abdomen Quality: sharp Timing: worsening Associated Symptoms: + fevers, + chills, + nausea, + diarrhea, No chest pain , No SOB, No vomiting Review of Systems See HPI for pertinent positives & negatives. A total of 10 systems reviewed and were otherwise negative. Past Medical & Surgical Medical Problems: (1) Hx pulmonary embolism Surgical Problems: (1) History of cholecystectomy Family History FHx: cancer Gallbladder disease Heart disease Hypertension Social History Smoking Status: Never Smoker Marital Status: Occupation Status: employed Current/Historical Medications Scheduled Aspirin (Aspirin Ec), 325 MG PO HS Coenzyme Q10 (Ubidecarenone) (Coq10), 1 CAP PO DAILY Dicyclomine Hcl (Bentyl), 20 MG PO Q8 Fish Oil ([place]-3), 1 CAP PO DAILY [place] (Aesculus [place] (Venastat), 2 CAP PO DAILY Levothyroxine Sodium (Synthroid), 125 MCG PO QAM Metoprolol Succinate (Toprol Xl), 50 MG PO QPM Multivitamin (Multivitamin), 1 TAB PO DAILY Olmesartan Medoxomil (Benicar), 20 MG PO QAM Omeprazole (Prilosec), 20 MG PO QPM Ondasetron Odt (Zofran Odt), 4 MG SL Q8 [Aloe Vera], 1 TAB PO QPM Scheduled PRN Fluticasone Prop/Salmeterol (Advair Diskus 100/50 60 Dose), 1 PUFF INH BID PRN for Shortness of Breath Allergies Coded Allergies: Azithromycin (Verified Allergy, Severe, ANAPHILAXIS, 07/31/17) Doxycycline (Verified Allergy, Severe, HIVES, 07/31/17) Moxifloxacin (Verified Allergy, Severe, ANAPHILAXIS, 07/31/17) Penicillins (Verified Allergy, Severe, HIVES, SWELLING, 07/31/17) Sulfa Antibiotics (Verified Allergy, Severe, HIVES, SWELLING, 07/31/17) Losartan (Verified Allergy, Unknown, UNKNOWN, 07/31/17) Physical Exam Vital Signs Date Time Temp Pulse Resp B/P (MAP) Pulse Ox O2 Delivery O2 Flow Rate FiO2 08/01/17 00:41 37.8 88 20 132/61 95 Room Air 07/31/17 23:38 95 20 148/74 94 Room Air 07/31/17 22:30 104 20 152/88 93 Room Air 07/31/17 20:35 37.7 100 20 151/77 95 Room Air Physical Exam GENERAL: alert, uncomfortable appearing, well nourished, no distress, non-toxic EYE EXAM: normal conjunctiva, PERRL and EOM's grossly intact OROPHARYNX: no exudate, no erythema, lips, buccal mucosa, and tongue normal and mucous membranes are mildly dry. NECK: supple, no nuchal rigidity, no adenopathy, non-tender LUNGS: Clear to auscultation. Normal chest wall mechanics, no w/r/r HEART: no murmurs, S1 normal and S2 normal ABDOMEN: abdomen soft, dull to percussion, non-tender, normo-active bowel sounds , no masses, no rebound or guarding, single subcentimeter maculopapular erythematous region noted in the left mid abdomen, no surrounding rash, no bull' s-eye appearance BACK: Back is symmetrical on inspection and there is no deformity, no midline tenderness, no CVA tenderness. SKIN: no rashes and no bruising UPPER EXTREMITIES: upper extremities are grossly normal. FROM, nml pulses. LOWER EXTREMITIES: No pitting edema. FROM, nml pulses. NEURO EXAM: Normal sensorium, cranial nerves II-XII grossly intact, normal speech, no gross weakness of arms, no gross weakness of legs. Medical Decision & Procedures ER Provider Diagnostic Interpretation: Radiology results have been interpreted by the radiologist and reviewed by me. CT ABDOMEN & PELVIS: Comparison is made to prior CT abdomen/pelvis on 11/14/2009. Mild left greater than right bibasilar atelectasis. Hepatic steatosis. Stable hepatomegaly. Prior cholecystectomy. Tiny hyperdensities in the kidneys are too small to definitively characterize. No hydronephrosis or stone. Normal appendix. Fluid throughout the colon is compatible with diarrheal state. Air-fluid levels in the small bowel loops also noted. Findings may represent enterocolitis. Prior hysterectomy. Underdistended bladder. Radiologist: Kyle Agarwal MD Laboratory Results 07/31/17 21:00 Red Blood Count 5.08, Mean Corpuscular Volume 83.5, Mean Corpuscular Hemoglobin 28.3, Mean Corpuscular Hemoglobin Concent 34.0, Mean Platelet Volume 8.6, Neutrophils (%) (Auto) 86.4, Lymphocytes (%) (Auto) 5.6, Monocytes (%) (Auto) 5.0, Eosinophils (%) (Auto) 2.8, Basophils (%) (Auto) 0.1, Neutrophils # (Auto) 7.38, Lymphocytes # (Auto) 0.48, Monocytes # (Auto) 0.43, Eosinophils # (Auto) 0.24, Basophils # (Auto) 0.01 07/31/17 21:00 Test 07/31/17 21:00 07/31/17 22:10 White Blood Count 8.55 K/uL (4.8-10.8) Red Blood Count 5.08 M/uL (4.2-5.4) Hemoglobin 14.4 g/dL (12.0-16.0) Hematocrit 42.4 % (37-47) Mean Corpuscular Volume 83.5 fL (80-100) Mean Corpuscular Hemoglobin 28.3 pg (25-34) Mean Corpuscular Hemoglobin Concent 34.0 g/dl (32-36) Platelet Count 232 K/uL (130-400) Mean Platelet Volume 8.6 fL (7.4-10.4) Neutrophils (%) (Auto) 86.4 % Lymphocytes (%) (Auto) 5.6 % Monocytes (%) (Auto) 5.0 % Eosinophils (%) (Auto) 2.8 % Basophils (%) (Auto) 0.1 % Neutrophils # (Auto) 7.38 K/uL (1.4-6.5) Lymphocytes # (Auto) 0.48 K/uL (1.2-3.4) Monocytes # (Auto) 0.43 K/uL (0.11-0.59) Eosinophils # (Auto) 0.24 K/uL (0-0.5) Basophils # (Auto) 0.01 K/uL (0-0.2) RDW Standard Deviation 41.0 fL (36.4-46.3) RDW Coefficient of Variation 13.5 % (11.5-14.5) Immature Granulocyte % (Auto) 0.1 % Immature Granulocyte # (Auto) 0.01 K/uL (0.00-0.02) Prothrombin Time 10.5 SECONDS (9.0-12.0) Prothromb Time International Ratio 1.0 (0.9-1.1) Urine Color YELLOW Urine Appearance TURBID (CLEAR) Urine pH 5.0 (4.5-7.5) Urine Specific [place] 1.032 (1.000-1.030) Urine Protein NEG (NEG) Urine Glucose (UA) NEG (NEG) Urine Ketones NEG (NEG) Urine Occult Blood 2+ (NEG) Urine Nitrite NEG (NEG) Urine Bilirubin NEG (NEG) Urine Urobilinogen NEG (NEG) Urine Leukocyte Esterase NEG (NEG) Urine WBC (Auto) 1-5 /hpf (0-5) Urine RBC (Auto) 10-30 /hpf (0-4) Urine Hyaline Casts (Auto) 1-5 /lpf (0-5) Urine Epithelial Cells (Auto) >30 /lpf (0-5) Urine Bacteria (Auto) NEG (NEG) Anion Gap 7.0 mmol/L (3-11) Est Creatinine Clear Calc Drug Dose 70.8 ml/min Estimated GFR () 92.8 Estimated GFR (Non- 80.0 BUN/Creatinine Ratio 30.5 (10-20) Calcium Level 8.3 mg/dl (8.5-10.1) Total Bilirubin 0.5 mg/dl (0.2-1) Aspartate Amino Transf (AST/SGOT) 18 U/L (15-37) Alanine Aminotransferase (ALT/SGPT) 21 U/L (12-78) Alkaline Phosphatase 108 U/L (45-117) Troponin I < 0.015 ng/ml (0-0.045) Total Protein 7.3 gm/dl (6.4-8.2) Albumin 3.5 gm/dl (3.4-5.0) Globulin 3.8 gm/dl (2.5-4.0) Albumin/Globulin Ratio 0.9 (0.9-2) Lipase 72 U/L (73-393) Thyroid Stimulating Hormone (TSH) 0.674 uIu/ml (0.300-4.500) Bedside Lactic Acid Venous 0.97 mmol/L (0.90-1.70) Laboratory results per my review. Medications Administered Medications (Trade) Dose Ordered Sig/Ella Route Start Time Stop Time Status Last Admin Dose Admin Acetaminophen (Tylenol Tab) 650 mg NOW STAT PO 07/31/17 22:14 07/31/17 22:15 DC 07/31/17 22:23 650 MG Fentanyl Citrate (Fentanyl Inj) 50 mcg NOW STAT IV 07/31/17 22:14 07/31/17 22:15 DC 07/31/17 22:22 50 MCG Sodium Chloride 1,000 ml @ 999 mls/hr Q1H1M STAT IV 07/31/17 22:14 07/31/17 23:14 DC 07/31/17 22:30 999 MLS/HR Ketorolac Tromethamine (Toradol Inj) 15 mg NOW STAT IV 07/31/17 23:48 07/31/17 23:49 DC 08/01/17 00:10 15 MG Dicyclomine HCl (Bentyl Tab) 20 mg NOW STAT PO 07/31/17 23:48 07/31/17 23:49 DC 08/01/17 00:10 20 MG ECG Per My Interpretation Indication: abdominal pain Rate (beats per minute): 93 Rhythm: sinus rhythm Findings: no acute ischemic change, no ectopy, other (normal axis) ED Course 2108: The patient was evaluated in room C12. A complete history and physical exam was performed. 2346: Upon reevaluation, the patient is feeling better. I discussed the findings and the treatment plan with the patient. She verbalizes agreement and understanding. She was discharged home. Medical Decision Differential diagnosis: Etiologies such as appendicitis, diverticulitis, PUD, biliary pathology, UTI, pancreatitis, obstruction, mesenteric ischemia, aortic pathology, infections, inflammatory bowel disease, renal colic, as well as others were entertained. Patient with no risk factors for occult infectious diarrhea more concerning such as C. difficile. No recent travel, patient not immunocompromised. Patient well-appearing here and felt improved with IV fluids and medications. Sort of some patient's neck likely from positioning spending most of the day in her recliner. I do not suspect meningitis. I do not suspect primary presentation of Lyme disease despite recent questionable tick bite. No evidence of UTI or pyelonephritis, hematuria was noted and patient has to have this rechecked by her family doctor. CT shows enterocolitis, no other acute significant GI or pathology. No acute vascular pathology. Patient had no episodes of diarrhea here. Patient ambulate with a steady gait, is able to tolerate p.o. bedside and felt improved. Patient well-appearing at time of discharge. Discussed close follow-up with family doctor as a precaution, symptoms to watch and return for, she verbalized understanding and was agreeable with plan. Medication Reconcilliation Current Medication List: was personally reviewed by me Blood Pressure Screening Patient's blood pressure: Elevated blood pressure Blood pressure disposition: Elevated BP felt to be situational Impression Primary Impression: Abdominal pain Additional Impression: Diarrhea Scribe Attestation The scribe's documentation has been prepared under my direction and personally reviewed by me in its entirety. I confirm that the note above accurately reflects all work, treatment, procedures, and medical decision making performed by me. Departure Information Dispostion Home / Self-Care Prescriptions Ondasetron Odt (ZOFRAN ODT) 4 Mg Tab 4 MG SL Q8 for Nausea, #15 TAB Prov: Mary Lou Pineda, DO 08/01/17 Dicyclomine Hcl (BENTYL) 10 Mg Cap 20 MG PO Q8 for Pain, #20 CAP Prov: Mary Lou Pineda, DO 08/01/17 Referrals Corey Ritchie M.D. (PCP) Patient Instructions My [facility] Additional Instructions Please drink clear liquids at frequent intervals to stay well-hydrated. Please stick to a bland light diet until you are feeling better. Please continue to monitor the diarrhea for any changes including black or bloody stools. If you develop worsening abdominal pain, vomiting, persistent fevers or chills, noticed black or bloody stools, develop dizziness, trouble breathing, passing out, you have any other new concerns, please return the emergency room. Please otherwise continue your usual medications. Problem Qualifiers Primary Impression: Abdominal pain Abdominal location: generalized Qualified Codes: R10.84 - Generalized abdominal pain Additional Impression: Diarrhea Diarrhea type: unspecified type Qualified Codes: R19.7 - Diarrhea, unspecified
[2017-07-31 21:37] LABS: BASO % 0.1 %; BASO ABS # 0.01 K/uL (0-0.2); EOS % 2.8 %; EOS ABS # 0.24 K/uL (0-0.5); HEMATOCRIT 42.4 % (37-47); HEMOGLOBIN 14.4 g/dL (12.0-16.0); IG# 0.01 K/uL (0.00-0.02); LYMPH % 5.6 %; LYMPH ABS # 0.48 K/uL (1.2-3.4); MEAN CELL VOLUME 83.5 fL (80-100); MEAN CORPUSCULAR HEMOGLOBIN 28.3 pg (25-34); MEAN PLATELET VOLUME 8.6 fL (7.4-10.4); MONO ABS # 0.43 K/uL (0.11-0.59); NEUT % 86.4 %; NEUT ABS # 7.38 K/uL (1.4-6.5); PLATELET COUNT 232 K/uL (130-400); RED CELL DISTRIBUTION WIDTH CV 13.5 % (11.5-14.5); WHITE BLOOD COUNT 8.55 K/uL (4.8-10.8)
[2017-07-31 21:57] LABS: ALBUMIN 3.5 gm/dl (3.4-5.0); ALT/SGPT 21 U/L (12-78); AST/SGOT 18 U/L (15-37); BLOOD UREA NITROGEN 23 mg/dl (7-18); CALCIUM 8.3 mg/dl (8.5-10.1); CARBON DIOXIDE 24 mmol/L (21-32); CREATININE 0.76 mg/dl (0.60-1.20); GLUCOSE 105 mg/dl (70-99); LIPASE 72 U/L (73-393); POTASSIUM 3.4 mmol/L (3.5-5.1); SODIUM 137 mmol/L (136-145)
[2017-07-31 22:10] LABS: ALKALINE PHOSPHATASE 108 U/L (45-117); TOTAL PROTEIN 7.3 gm/dl (6.4-8.2)
[2017-07-31] MEDS ORDERED: SODIUM CHLORIDE 0.9% 1000ML 1,000 ML IV STA (22:14)
[2017-07-31] MEDS ORDERED: FENTANYL CITRATE INJ 50 MCG/1 ML 2 ML VIAL IV STA (22:14)
[2017-07-31] MEDS ORDERED: ACETAMINOPHEN 325 MG TAB PO STA (22:14)
[2017-07-31] MEDS ORDERED: OPTIRAY 320 IV PRN (23:15)
[2017-07-31] MEDS ORDERED: DICYCLOMINE HCL 20 MG TAB PO STA (23:48)
[2017-07-31] MEDS ORDERED: KETOROLAC TROMETHAMINE 30 MG/ML VIAL IV STA (23:48)
[2017-08-01] MEDS ORDERED: DICY10CA55 PO (00:35)
[2017-08-01] MEDS ORDERED: ONDA4TAB10 SL (00:35)
[2017-08-01 00:41] VITALS: BP 132/61; PULSE 88; TEMP 37.8; O2SAT 95
--- NOTE | 2017-08-01 07:53 | DIAGNOSTIC IMAGING REPORT ---
CT OF THE ABDOMEN AND PELVIS WITH CONTRAST CLINICAL HISTORY: Abdominal pain, nausea and diarrhea. COMPARISON STUDY: CT of the abdomen and pelvis November 14, 2009 and MRI of the liver February 20, 2017. TECHNIQUE: Following IV administration of 117 mL of Optiray-320, axial images of the abdomen and pelvis were obtained from the lung bases to the proximal femurs. Images were reviewed in the axial, sagittal, and coronal planes. IV contrast was administered without complication. A dose lowering technique was utilized adhering to the principles of ALARA. CT DOSE: 846.64 mGy.cm FINDINGS: No pneumatosis, free air or portal venous gas is present. Fatty infiltration of the liver is noted. Mild biliary ductal dilatation is unchanged and likely related to prior cholecystectomy. No peripancreatic infiltration is noted. There are no peripancreatic fluid collections. There is no hydronephrosis. There is no evidence for a bowel obstruction. The appendix is normal. Small large bowel is fluid-filled. There is minimal mesenteric infiltration adjacent to multiple small bowel loops. This suggests an enterocolitis. Uterus is surgically absent. There are no suspicious osseous lesions. IMPRESSION: 1. No bowel obstruction. Fluid-filled small and large bowel with minimal mesenteric infiltration. The findings suggest an infectious enterocolitis. No abscess or free air. 2. Fatty liver. Electronically signed by: Tigre Hernandez M.D. 08/01/2017 7:23 AM Dictated Date/Time: 08/01/2017 7:07 AM
== END 2017-08-01 00:49 | disposition home or self-care (01) ==
LOC: C.EDB 20:18 → C.EDC 08-01 00:49
DX: K52.9 Noninfective gastroenteritis and colitis, unspecified (principal); R31.9 Hematuria, unspecified; L53.9 Erythematous condition, unspecified; Z90.49 Acquired absence of other specified parts of digestive tract; Z86.711 Personal history of pulmonary embolism; Z79.82 Long term (current) use of aspirin; Z88.0 Allergy status to penicillin; Z88.1 Allergy status to other antibiotic agents; Z88.2 Allergy status to sulfonamides; Z88.8 Allergy status to other drugs, medicaments and biological substances